=== PATIENT | male | born 1935 | race Asian ===

== ENCOUNTER → 2016-10-17 | Outpatient (CLI) | payer MEDICARE, OTHER ==
[~2016-10-17] MED LIST: AMIO200 PO; AMLO-511 PO; B CO1CAP4 PO; CARV12 PO; DIGO125T PO; DOXA4TAB2 PO; DUTA.5 PO; FENO48TA15 PO; LACT30L PO; LEVAHFA IH; LEVO125 PO; LISI10TA7 PO; PHOSLOC PO; SEVEC800 PO; TERA5CAP4 PO; WARF1TAB6 PO
== END | disposition home or self-care (01) ==
LOC: RADPV 14:52
PROVIDERS: ATTEND Internal Medicine Nephrology
DX: I50.9 Heart failure, unspecified (principal); I51.7 Cardiomegaly; I70.0 Atherosclerosis of aorta; I28.8 Other diseases of pulmonary vessels; J98.4 Other disorders of lung
CPT/HCPCS: 71020

== ENCOUNTER → 2016-11-05 | Outpatient (CLI) | payer MEDICARE, OTHER | END | disposition home or self-care (01) | LOC: RADMN 15:15 | PROVIDERS: ATTEND Internal Medicine Cardiovascular Disease | DX: G93.89 Other specified disorders of brain (principal); I63.8 Other cerebral infarction; G31.89 Other specified degenerative diseases of nervous system; I67.2 Cerebral atherosclerosis; Z91.81 History of falling | CPT/HCPCS: 70450 ==